=== PATIENT | male | born 1955 | race African-American/Black ===

== ENCOUNTER 2016-12-09 13:13 | Emergency (ER) | payer MEDICARE, OTHER ==
[~2016-12-09] VITALS: Ht 177.8 cm; Wt 100.0 kg
[~2016-12-09 13:13] MED LIST: ALBU8HFA PO; BUPR-47 PO; HYDR25TA PO; LISI40TA4 PO; OMEP20CA10 PO; SIMV10TA6 PO
[2016-12-09] MEDS ORDERED: HYDR-305 PO (13:20)
[2016-12-09] MEDS ORDERED: HYDROCODONE/ACETAMINOPHEN 5-325 MG TABLET PO ONE (14:15)
[2016-12-09 16:17] VITALS: BP 149/89
== END 2016-12-09 16:32 | disposition home or self-care (01) ==
LOC: EMS 13:15
DX: S13.4XXA Sprain of ligaments of cervical spine, initial encounter (principal); I10 Essential (primary) hypertension; G89.29 Other chronic pain; M54.5 Low back pain; E78.00 Pure hypercholesterolemia, unspecified; F17.210 Nicotine dependence, cigarettes, uncomplicated; Z86.73 Personal history of transient ischemic attack (TIA), and cerebral infarction without residual deficits; V59.59XA Passenger in pick-up truck or van injured in collision with other motor vehicles in traffic accident, initial encounter; Y93.89 Activity, other specified; Y92.89 Other specified places as the place of occurrence of the external cause; Y99.8 Other external cause status
CPT/HCPCS: 72040; 72100; 99284; 99407

== ENCOUNTER 2018-03-03 09:26 | Emergency (ER) | payer MEDICARE, OTHER ==
[~2018-03-03] VITALS: Ht 177.8 cm; Wt 96.4 kg
[~2018-03-03 09:26] MED LIST changes: +HYDR-4455 PO
[2018-03-03] MEDS ORDERED: METO25XL PO (09:46)
[2018-03-03] MEDS ORDERED: AMLO2.5T3 PO (09:46)
[2018-03-03] MEDS ORDERED: AmLODIPine BESYLATE 5 MG TABLET PO ONE (10:45)
[2018-03-03] MEDS ORDERED: METOPROLOL SUCCINATE 25 MG ER TABLET PO ONE (10:45)
[2018-03-03] MEDS ORDERED: HYDROCHLOROTHIAZIDE 25 MG TABLET PO ONE (10:45)
[2018-03-03] MEDS ORDERED: LISINOPRIL 10 MG TABLET PO ONE (10:45)
[2018-03-03] MEDS ORDERED: HYDROCODONE/ACETAMINOPHEN 5-325 MG TABLET PO ONE (12:00)
[2018-03-03 12:33] VITALS: BP 156/90
== END 2018-03-03 12:35 | disposition home or self-care (01) ==
LOC: EMS 09:27
DX: S09.90XA Unspecified injury of head, initial encounter (principal); M54.2 Cervicalgia; D17.1 Benign lipomatous neoplasm of skin and subcutaneous tissue of trunk; I10 Essential (primary) hypertension; E78.00 Pure hypercholesterolemia, unspecified; F17.210 Nicotine dependence, cigarettes, uncomplicated; F12.90 Cannabis use, unspecified, uncomplicated; Z86.73 Personal history of transient ischemic attack (TIA), and cerebral infarction without residual deficits; Z79.899 Other long term (current) drug therapy; W18.39XA Other fall on same level, initial encounter; Y93.89 Activity, other specified; Y92.89 Other specified places as the place of occurrence of the external cause; Y99.8 Other external cause status
CPT/HCPCS: 70450; 72125; 99406